=== PATIENT | female | born 1965 ===

== ENCOUNTER → 2017-02-01 | Outpatient (CLI) | payer BC ==
--- NOTE | 2017-02-01 10:27 | CR ---
EXAMINATION: Right wrist HISTORY: Pain COMPARISON: None TECHNIQUE: 3 views FINDINGS: There is no acute osseous traumatic, dislocation, or fracture identified. Bone mineralizat ion appears normal. There is moderate negative ulnar variance. Moderate osteoarthritic changes are n oted at the first CMC joints. The radiocarpal alignment is preserved. IMPRESSION: Degenerative changes and a negative ulnar variance without acute findings.
--- NOTE | 2017-02-01 10:28 | CR ---
EXAMINATION: Left wrist HISTORY: Pain COMPARISON: None TECHNIQUE: 3 views FINDINGS: There is no acute osseous abnormality, dislocation, or fracture. There is mild widening of the scapholunate interval. There is moderate negative ulnar variance. Mild degenerative changes not ed at the first CMC joint. The radiocarpal alignment is preserved. Bone mineralization is normal. IMPRESSION: 1. Moderate negative ulnar variance. 2. Mild widening of the scapholunate interval suggesting underlying ligamentous disruption.
== END ==
LOC: MW.CHORTHO 07:55
PROVIDERS: ATTEND Orthopaedic Surgery
DX: M25.531 Pain in right wrist (principal); M25.532 Pain in left wrist
CPT/HCPCS: 73110-26-LT; 73110-26-RT; 73110-LT; 73110-RT